=== PATIENT | male | born 1950 | race Caucasian/White ===

== ENCOUNTER 2023-02-21 14:00 | Outpatient (CLI) | payer MEDICARE, OTHER ==
--- NOTE | 2023-02-21 16:16 | XRAY Report ---
PROCEDURE: Shoulder View LT INDICATIONS: LEFT SHOULDER PAIN TECHNIQUE: 2 views of the shoulder were acquired. COMPARISON: None. FINDINGS: Bones: Mild acromioclavicular and glenohumeral degenerative changes. No displaced fracture or disloc ation is identified. Soft tissues: No suspicious calcifications. IMPRESSION: Mild degenerative changes. If there is high concern for further derangement, consider MRI evaluation. Reviewed by: Jasson Díaz MD on 02/21/2023 4:14 PM [facility] Approved by: Jasson Díaz MD on 02/21/2023 4:14 PM [facility] Station ID: [id number]
== END 2023-02-21 14:15 | disposition home or self-care (01) ==
LOC: DI.N 14:00
PROVIDERS: ATTEND Nurse Practitioner
DX: M19.012 Primary osteoarthritis, left shoulder (principal)